=== PATIENT | male | born 1975 | race American Indian/Alaskan Native ===

== ENCOUNTER 2024-09-03 06:21 | Emergency (ER) | payer BC, SELFPAY ==
[2024-09-03 06:23] VITALS: BP 126/78
--- NOTE | 2024-09-03 06:50 | ED.GENMED ---
History of Present Illness
General
Chief Complaint: Flank Pain
Source: patient
Exam Limitations: none
Time Seen by Provider: 09/03/24 06:46
History of Present Illness
History of Present Illness:
49-year-old male sudden onset of right flank pain about an hour and a half ago. Vomited once. No fever chills no urinary symptoms. History of kidney stones. Feels the same. Previous stones have passed on their own.
Past History
Past History
ED Past Medical History: Other (Kidney stones)
ED Past Surgical History: Orthopedic
Patient has exhibited threatening behavior?: No
PSI?: No
Social History
Living: with family
Review of Systems
Review of Systems
All Other Systems: Not applicable
Constitutional: Denies fever or chills
: Denies dysuria, frequency or urgency
Phy Exam
Physical Exam
Physical Exam:
GENERAL: Alert and oriented in no apparent distress. Appears mildly uncomfortable but nontoxic
EYE: Orbits normal.
NECK: Supple
CARDIAC: Regular rate and rhythm without any obvious murmurs.
LUNGS: Clear breath sounds,normal
ABDOMEN: Soft, without focal tenderness or distention. No CVA tenderness
NEUROLOGICAL: Alert and oriented , grossly non-focal
SKIN: Warm and dry
PSYCH: Normal and appropriate interaction.
Course
Orders/Labs/Results
Orders:
Orders
09/03/24 06:49
0.9% Sodium Chloride 1000 ml [Nss] 1,000 ml IV BOLUS
Ketorolac [Toradol] 15 mg IV NOW STA
Ondansetron Injectable [Zofran] 4 mg IV NOW STA
09/03/24 06:50
CT Abd/pel Without Iv Or Oral Urgent
Comment:
Reason For Exam: Sudden right flank pain
09/03/24 07:00
Complete Blood Count/With Diff Urgent
Comprehensive Metabolic Panel Urgent
09/03/24 07:59
Urinalysis Reflex To Culture Urgent
Date Specimen was Collected: 09/03/24
Time Specimen was Collected: 07:56
Urine Microscopic Reflex Cult Urgent
09/03/24 08:09
CR Abdomen - 1 View Urgent
Comment:
Reason For Exam: 7 mm right ureteral stone
Abnormal Lab Results
09/03/24 09/03/24
07:00 07:59
BUN 22 H mg/dl
(9-20)
Glucose 112 H mg/dl
(70-99)
ALT 57 H U/L
(0-50)
Ur Occult Blood Reflex 4+ A
(Negative)
Urine RBC 3-6 A /HPF
(0-2)
Urine Bacteria (Reflex) Few A
(Negative)
09/03/24 07:00
09/03/24 07:00
Vital Signs
Initial and Last Documented VS:
Initial Vital Signs
Temp Pulse Resp BP Pulse Ox
97.5 F 77 24 126/78 98
09/03/24 06:23 09/03/24 06:23 09/03/24 06:23 09/03/24 06:23 09/03/24 06:23
Last Documented Vital Signs
Temp Pulse Resp BP Pulse Ox
97.5 F 74 16 112/83 98
09/03/24 06:23 09/03/24 10:00 09/03/24 10:00 09/03/24 10:00 09/03/24 10:00
MDM/Problems Addressed
Differential Diagnosis Includes:
Clinically describing recurrent kidney stone. Nothing clinically to support infectious issue. Will check CT scan labs urine. Pain management nausea management and fluids.
*Pulse Oximetry
Patient hypoxic: no
*Critical Care Note
Total Time (30-74mins, 75-104mins- exclusive of procedures): Not Applicable
Data Reviewed
Review of Other/Old Records Reveals: Labs, Records and Radiology Studies
Update Note
Update Note:
Discussed with urology.. Patient and urology both comfortable with outpatient management
ED Attending Note
-
Portions of this chart may have been created with voice recognition software.� Occasional wrong word or��sound alike� substitutions may have occurred due to the inherent limitations of voice recognition software.
Discharge Plan
Departure
Patient Disposition: Home (Routine Discharge)
Date of Disposition: 09/03/24
Time of Disposition: :
Patient with high blood pressure during this ER visit?: Yes
Discharge Problem:
7 mm kidney stone
Instructions: Kidney Stones (DC), BLOOD PRESSURE
Prescriptions:
New
ondansetron 4 mg tablet,disintegrating
4 mg PO TIDPRN PRN (Reason: nausea/vomiting) Qty: 14 0RF
tamsulosin [Flomax] 0.4 mg capsule
0.4 mg PO DAILY Qty: 14 0RF
hydrocodone-acetaminophen 5-300 mg tablet
1 tab PO Q6H PRN (Reason: Pain) Qty: 14 0RF
No Action
tamsulosin [Flomax] 0.4 mg capsule
0.4 mg PO DAILY Qty: 5 0RF
hydrocodone-acetaminophen 5-325 mg tablet
1 tab PO TID PRN (Reason: pain) Qty: 7 0RF
Referrals:
Boyd Ruelas MD [Active] - Follow up in 5-7 days
UNKNOWN - PT DOES,NOT KNOW [Family Provider] -
Activity Restrictions/Additional Instructions:
The prescriptions were sent to your pharmacy
Start with Advil Motrin or Aleve
Add Tylenol or Vicodin for pain. Do not take both
Follow-up closely with urology
Interventions
Interventions:
*Risk Screen - Suicide Last Done: 09/03/24 07:11
*General Assessment Last Done: 09/03/24 07:11
*Neglect/Abuse Screening Last Done: 09/03/24 07:11
ED- Fall Risk Assessment Last Done: 09/03/24 07:11
*Nursing Disposition Last Done: 09/03/24 10:28
NE-Dhcosn-Yzxsqimzde Assessment Last Done: 09/03/24 07:11
ED-Male Genitourinary Assessment Last Done: 09/03/24 07:11
Discharge Date and Time
Discharge Date/Time: 09/03/24 10:29
Print Language: AMHARIC
[2024-09-03] MEDS: TORADOL 15 MG IV (06:58)
[2024-09-03] MEDS: ZOFRAN 4 MG IV (06:59)
[2024-09-03] MEDS: NSS 1000 IV (06:59)
[2024-09-03 07:14] LABS: % Basophils 0.7 % (0-2); % Eosinophils 2.7 % (0-6); % Immature Granulocytes 0.3 % (0-0.5); % Lymphocytes 34.8 % (20.5-51.1); % Monocytes 8.7 % (1.7-9.3); % Neutrophils 52.8 % (42.2-75.2); Absolute Basophils 0.1 10^3/uL (0-0.2); Absolute Eosinophils 0.2 10^3/uL (0-0.7); Absolute Lymphocytes 2.3 10^3/uL (1.2-3.4); Absolute Monocytes 0.6 10^3/uL (0.1-0.6); Absolute Neutrophils 3.5 10^3/uL (1.4-6.5); Hematocrit 42.5 % (39.0-52.0); Hemoglobin 14.3 g/dL (13.0-18.0); Mean Corp Hgb Conc. 33.6 g/dL (33.0-37.0); Mean Corpuscular Volume 80.2 fL (80.0-94.0); Mean Platelet Volume 9.2 fL (7.4-10.4); Nucleated Red Blood Cells % 0 % (-); Platelet Count 260 10^3/uL (130-400); Red Cell Dist. Width 13.8 % (11.5-14.5); White Blood Cell Count 6.7 10^3/uL (4.8-10.8)
[2024-09-03 08:11] LABS: Urine Albumin Negative (Neg - Trace); Urine Bilirubin Negative (Negative); Urine Character Clear (Clear); Urine Color Yellow; Urine Glucose Negative (Negative); Urine Ketone Negative (Negative); Urine Leukocyte Negative (Negative); Urine Nitrite Negative (Negative); Urine Occult Blood 4+ (Negative); Urine Urobilinogen Negative (Neg - 1+)
[2024-09-03 08:12] LABS: ALT (SGPT) 57 U/L (0-50); AST (SGOT) 37 U/L (17-59); Albumin 4.7 g/dl (3.5-5.0); Alkaline Phosphatase 75 U/L (38-126); Blood Urea Nitrogen 22 mg/dl (9-20); Calcium 8.9 mg/dl (8.4-10.2); Carbon Dioxide 23 mmol/L (22-30); Chloride 104 mmol/L (98-107); Glucose 112 mg/dl (70-99); Sodium 138 mmol/L (135-145); Total Bilirubin 0.6 mg/dl (0.2-1.3); Total Protein 7.4 g/dl (6.3-8.2); eGFR > 60.00
[2024-09-03 08:21] LABS: Urine Bacteria Few (Negative); Urine Squamous Cell 0-2 /LPF (Few); Urine White Cell 0-2 /HPF (0-5)
[2024-09-03 10:00] VITALS: BP 112/83
== END 2024-09-03 10:29 | disposition home or self-care (01) ==
LOC: EMR 06:21
PROVIDERS: EMERGENCY PHYSICIAN Emergency Medicine
DX: N13.2 Hydronephrosis with renal and ureteral calculous obstruction (principal)
CPT/HCPCS: 99284; 96374; 96375; 74018; 74176; 80053; 81003; 81015; 85025